=== PATIENT | male | born 1965 | race African-American/Black ===

== ENCOUNTER 2018-12-07 08:03 | Inpatient (IN) | payer MEDICAID ==
[~2018-12-07] VITALS: Ht 170.2 cm; Wt 65.9 kg
[2018-12-07] MEDS ORDERED: RISP1 PO (08:10)
[2018-12-07] MEDS ORDERED: TOPI100T37 PO (08:10)
[2018-12-07 09:26] LABS: BASOPHILS % (AUTO) 0.6 % (0.0-2.0); EOSINOPHILS % (AUTO) 0.5 % (1.0-6.0); HEMATOCRIT 43.2 % (41-53); HEMOGLOBIN 14.6 g/dL (13.5-17.5); LYMPHOCYTES # (AUTO) 1.7 K/uL (1.0-4.8); LYMPHOCYTES % (AUTO) 22.4 % (22.0-44.0); MEAN CORPUSCULAR HEMOGLOBIN 31.3 pg (26.0-34.0); MEAN CORPUSCULAR HGB CONC 33.8 G/dL (31.0-37.0); MEAN CORPUSCULAR VOLUME 93 fL (80-100); MONOCYTES # (AUTO) 0.6 K/uL (0.1-1.0); MONOCYTES % (AUTO) 7.4 % (2.0-9.0); NEUTROPHILS # (AUTO) 5.1 K/uL (1.8-7.7); NEUTROPHILS % (AUTO) 69.1 % (40.0-70.0); PLATELET COUNT (AUTO) 184 K/uL (150-450); RED BLOOD CELL COUNT(AUTO) 4.67 MIL/uL (4.50-5.90); RED CELL DISTRIBUTION WIDTH 13.8 % (11.5-14.5)
[2018-12-07 09:26] LABS: ANION GAP 12 mmol/L (8-16); CALCIUM, TOTAL 9.4 mg/dL (8.8-10.5); CARBON DIOXIDE 24 mmol/L (22-29); CHLORIDE 104 mmol/L (98-107); CREATININE 1.13 mg/dL (0.60-1.30); GLOMERULAR FILTR. RATE CALC > 60 mL/min (>60); GLUCOSE,RANDOM 90 mg/dL (70-110); POTASSIUM 4.1 mmol/L (3.5-5.1); SODIUM SERUM 140 mmol/L (136-145); UREA NITROGEN, BLOOD 26 mg/dL (7-18)
[2018-12-07] MEDS ORDERED: ZOLPIDEM TARTRATE 10 MG TABLET PO PRN (09:30)
[2018-12-07] MEDS ORDERED: LORazepam 2 MG TABLET PO PRN (09:30)
[2018-12-07] MEDS ORDERED: HALOPERIDOL 5 MG TABLET PO PRN (09:30)
[2018-12-07 09:32] LABS: ALANINE AMINOTRANSFERASE 36 U/L (12-78); ALBUMIN 4.3 g/dL (3.4-5.0); ALKALINE PHOSPHATASE 108 U/L (46-116); ASPARTATE AMINOTRANSFERASE 25 U/L (15-37); BILIRUBIN,TOTAL 0.4 mg/dL (0.1-1.0); TOTAL PROTEIN, SERUM 7.7 g/dL (6.4-8.2)
[2018-12-07] MEDS ORDERED: DiphenhydrAMINE HCL 25 MG CAPSULE PO ONE (11:30)
[2018-12-07 11:39] LABS: AMPHET/METH SCREEN,URINE POSITIVE (NEGATIVE); BARBITURATE SCREEN, URINE NEGATIVE (NEGATIVE); BENZODIAZEPINES SCREEN,URINE NEGATIVE (NEGATIVE); CANNABINOID SCREEN,URINE POSITIVE (NEGATIVE); COCAINE SCREEN,URINE NEGATIVE (NEGATIVE); METHADONE SCREEN, URINE NEGATIVE (NEGATIVE); OPIATE SCREEN,URINE NEGATIVE (NEGATIVE)
[2018-12-07 11:40] LABS: PHENCYCLIDINE SCREEN,URINE NEGATIVE (NEGATIVE)
[2018-12-07 12:03] LABS: APPEARANCE,URINE CLEAR (CLEAR); BILIRUBIN,URINE NEGATIVE (NEGATIVE); GLUCOSE, URINE (UA) NEGATIVE (NEGATIVE); KETONES,URINE NEGATIVE (NEGATIVE); LEUKOCYTE ESTERASE ,URINE NEGATIVE (NEGATIVE); NITRATE,URINE NEGATIVE (NEGATIVE); OCCULT BLOOD,URINE NEGATIVE (NEGATIVE); PH,URINE 5.5 (5.0-8.0); PROTEIN,URINE NEGATIVE (NEGATIVE); UROBILINOGEN,URINE 0.2 mg/dL (<=1.0)
[2018-12-07 13:37] VITALS: BP 140/89
[2018-12-07 20:25] VITALS: BP 156/88
[2018-12-08 01:46] VITALS: BP 142/94
[2018-12-08] MEDS ORDERED: PETROLATUM,WHITE 71 GM JELLY TP PRN (07:30)
[2018-12-08] MEDS ORDERED: LOPERAMIDE HCL 2 MG CAPSULE PO PRN (07:30)
[2018-12-08] MEDS ORDERED: MAG HYDROX/AL HYDROX/SIMETH ES 30 ML SUSPENSION UDCUP PO PRN (07:30)
[2018-12-08] MEDS ORDERED: MAGNESIUM HYDROXIDE SUSPENSION 30 ML UDCUP PO PRN (07:30)
[2018-12-08] MEDS ORDERED: ALBUTEROL SULFATE HFA 90 MCG/PUFF 8 GM INHALER IH PRN (07:30)
[2018-12-08] MEDS ORDERED: ONDANSETRON HCL 4 MG TABLET PO PRN (07:30)
[2018-12-08] MEDS ORDERED: GuaiFENesin/D-METHORPHAN [SUGAR-FREE] 200-20MG/10 ML SYRUP UDCUP PO PRN (07:30)
[2018-12-08] MEDS ORDERED: CloNIDine HCL 0.1 MG TABLET PO PRN (07:30)
[2018-12-08] MEDS ORDERED: DOCUSATE SODIUM 100 MG CAPSULE PO PRN (07:30)
[2018-12-08] MEDS ORDERED: IBUPROFEN 400 MG TABLET PO PRN (07:30)
[2018-12-08] MEDS ORDERED: NICOTINE 14 MG/24 HOUR PATCH TD PRN (07:30)
[2018-12-08] MEDS ORDERED: ACETAMINOPHEN 325 MG TABLET PO PRN (07:30)
[2018-12-08 08:00] VITALS: BP 149/92
[2018-12-08 08:37] LABS: CHOL/HDL RATIO 2.9 (4.2-7.3); FREE T4 (FREE THYROXINE) 0.88 ng/dL (0.76-1.46); THYROID STIMULATING HORMONE 1.22 uIU/mL (0.36-3.74)
[2018-12-08] MEDS ORDERED: RisperiDONE 1 MG TABLET PO SCH (17:00)
[2018-12-08 22:03] VITALS: BP 142/87
[2018-12-09 08:05] VITALS: BP 129/88
[2018-12-09] MEDS: FLUoxetine HCL 20 MG CAPSULE PO SCH (09:02)
[2018-12-09] MEDS: RisperiDONE 2 MG TABLET PO SCH ×2 (09:02→16:54)
[2018-12-09 16:45] VITALS: BP 123/78
[2018-12-10 08:00] VITALS: BP 143/84
[2018-12-10] MEDS: FLUoxetine HCL 20 MG CAPSULE PO SCH (09:02)
[2018-12-10] MEDS: RisperiDONE 2 MG TABLET PO SCH ×2 (09:02→16:51)
[2018-12-10 16:00] VITALS: BP 149/89
[2018-12-10] MEDS ORDERED: DENTURE ADHESIVE 68 GM CREAM DT PRN (17:00)
[2018-12-11 08:05] VITALS: BP 135/84
[2018-12-11] MEDS: RisperiDONE 2 MG TABLET PO SCH (10:13)
[2018-12-11] MEDS: FLUoxetine HCL 20 MG CAPSULE PO SCH (10:13)
[2018-12-11] MEDS ORDERED: FLUO-191 PO (14:50)
== END 2018-12-11 16:00 | disposition home or self-care (01) | DRG 750 ==
LOC: EDUNIT# 08:03 → EMS 08:04 → AHU 12:21 → 3EI 12-08 00:19
PROVIDERS: ADMIT Psychiatry & Neurology Psychiatry; ATTEND Psychiatry & Neurology Psychiatry
DX: F25.0 Schizoaffective disorder, bipolar type (principal); Z59.0 Homelessness; F15.10 Other stimulant abuse, uncomplicated; F17.200 Nicotine dependence, unspecified, uncomplicated; F41.9 Anxiety disorder, unspecified; F32.9 Major depressive disorder, single episode, unspecified; I10 Essential (primary) hypertension; Z91.19 Patient's noncompliance with other medical treatment and regimen; Z91.5 Personal history of self-harm; Z28.21 Immunization not carried out because of patient refusal; Z71.6 Tobacco abuse counseling; Z71.51 Drug abuse counseling and surveillance of drug abuser
CPT/HCPCS: 84439; 84443; G0480

== ENCOUNTER 2019-01-23 17:15 | Emergency (ER) | payer MEDICAID ==
[~2019-01-23] VITALS: Ht 170.2 cm; Wt 61.4 kg
[~2019-01-23 17:15] MED LIST: FLUO-191 PO; RISP1 PO
[2019-01-23] MEDS ORDERED: TRAZ-219 PO (17:44)
[2019-01-23] MEDS ORDERED: TOPI25 PO (17:44)
[2019-01-23] MEDS ORDERED: OLAN10TA3 PO (17:44)
[2019-01-23] MEDS ORDERED: AZIT250T9 PO (17:44)
[2019-01-23 18:56] LABS: BASOPHILS % (AUTO) 0.9 % (0.0-2.0); EOSINOPHILS % (AUTO) 1.8 % (1.0-6.0); HEMATOCRIT 38.6 % (41-53); LYMPHOCYTES # (AUTO) 1.7 K/uL (1.0-4.8); LYMPHOCYTES % (AUTO) 36.1 % (22.0-44.0); MEAN CORPUSCULAR HEMOGLOBIN 30.7 pg (26.0-34.0); MEAN CORPUSCULAR HGB CONC 33.8 G/dL (31.0-37.0); MEAN CORPUSCULAR VOLUME 91 fL (80-100); MONOCYTES # (AUTO) 0.5 K/uL (0.1-1.0); MONOCYTES % (AUTO) 9.8 % (2.0-9.0); NEUTROPHILS # (AUTO) 2.5 K/uL (1.8-7.7); NEUTROPHILS % (AUTO) 51.4 % (40.0-70.0); PLATELET COUNT (AUTO) 271 K/uL (150-450); RED BLOOD CELL COUNT(AUTO) 4.25 MIL/uL (4.50-5.90); RED CELL DISTRIBUTION WIDTH 13.7 % (11.5-14.5)
[2019-01-23 19:05] LABS: ANION GAP 9 mmol/L (8-16); CALCIUM, TOTAL 9.3 mg/dL (8.8-10.5); CARBON DIOXIDE 24 mmol/L (22-29); CHLORIDE 105 mmol/L (98-107); CREATININE 1.22 mg/dL (0.60-1.30); GLOMERULAR FILTR. RATE CALC > 60 mL/min (>60); GLUCOSE,RANDOM 129 mg/dL (70-110); POTASSIUM 3.6 mmol/L (3.5-5.1); SODIUM SERUM 138 mmol/L (136-145); UREA NITROGEN, BLOOD 22 mg/dL (7-18)
[2019-01-23 19:13] LABS: ALANINE AMINOTRANSFERASE 12 U/L (12-78); ALBUMIN 3.8 g/dL (3.4-5.0); ALKALINE PHOSPHATASE 101 U/L (46-116); ASPARTATE AMINOTRANSFERASE 14 U/L (15-37); BILIRUBIN,TOTAL 0.5 mg/dL (0.1-1.0); TOTAL PROTEIN, SERUM 7.8 g/dL (6.4-8.2)
[2019-01-24 01:45] VITALS: BP 138/79
== END 2019-01-24 02:09 | disposition home or self-care (01) ==
LOC: EMS 17:15
DX: F20.0 Paranoid schizophrenia (principal); F15.10 Other stimulant abuse, uncomplicated; F17.210 Nicotine dependence, cigarettes, uncomplicated; F32.9 Major depressive disorder, single episode, unspecified; Z79.899 Other long term (current) drug therapy
CPT/HCPCS: 36415; 80053; 85025; 99284; G0480

== ENCOUNTER 2019-12-15 10:51 | Inpatient (IN) | payer MEDICAID ==
[~2019-12-15] VITALS: Ht 170.2 cm; Wt 64.6 kg
[~2019-12-15 10:51] MED LIST changes: +AZIT250T9 PO; -FLUO-191 PO; +OLAN10TA3 PO; -RISP1 PO; +TOPI25 PO; +TRAZ-252 PO
[2019-12-15 12:35] LABS: AMPHET/METH SCREEN,URINE POSITIVE (NEGATIVE); BARBITURATE SCREEN, URINE NEGATIVE (NEGATIVE); BENZODIAZEPINES SCREEN,URINE NEGATIVE (NEGATIVE); CANNABINOID SCREEN,URINE POSITIVE (NEGATIVE); COCAINE SCREEN,URINE NEGATIVE (NEGATIVE); METHADONE SCREEN, URINE NEGATIVE (NEGATIVE); OPIATE SCREEN,URINE NEGATIVE (NEGATIVE)
[2019-12-15 12:36] LABS: PHENCYCLIDINE SCREEN,URINE NEGATIVE (NEGATIVE)
[2019-12-15] MEDS ORDERED: OLANZapine 5 MG TABLET PO ONE (13:00)
[2019-12-15] MEDS ORDERED: HALOPERIDOL 5 MG TABLET PO PRN (13:15)
[2019-12-15] MEDS ORDERED: ZOLPIDEM TARTRATE 10 MG TABLET PO PRN (13:15)
[2019-12-15 17:23] VITALS: BP 143/88
[2019-12-15] MEDS ORDERED: INFLUENZA VIRUS VACCINE QVS 2019-20 (3YR+)/PF 60 MCG/0.5 ML SYRINGE IM ONE (18:15)
[2019-12-16 06:09] VITALS: BP 139/83
[2019-12-16] MEDS: NICOTINE 14 MG/24 HOUR PATCH TD SCH (08:28)
[2019-12-16] MEDS ORDERED: DOCUSATE SODIUM 100 MG CAPSULE PO PRN (09:45)
[2019-12-16] MEDS ORDERED: OMEPRAZOLE 20 MG CAPSULE PO PRN (09:45)
[2019-12-16] MEDS ORDERED: IBUPROFEN 600 MG TABLET PO PRN (09:45)
[2019-12-16] MEDS ORDERED: ONDANSETRON HCL 4 MG TABLET PO PRN (09:45)
[2019-12-16] MEDS ORDERED: LOPERAMIDE HCL 2 MG CAPSULE PO PRN (09:45)
[2019-12-16] MEDS ORDERED: CloNIDine HCL 0.1 MG TABLET PO PRN (09:45)
[2019-12-16] MEDS ORDERED: MAGNESIUM HYDROXIDE SUSPENSION 30 ML UDCUP PO PRN (09:45)
[2019-12-16] MEDS ORDERED: MAG HYDROX/AL HYDROX/SIMETH ES 30 ML SUSPENSION UDCUP PO PRN (09:45)
[2019-12-16] MEDS ORDERED: PETROLATUM,WHITE 28 GM JELLY TP PRN (09:45)
[2019-12-16] MEDS ORDERED: BACITRACIN 28.4 GM OINTMENT TP PRN (09:45)
[2019-12-16] MEDS ORDERED: BENZOCAINE/MENTHOL LOZENGE MM PRN (09:45)
[2019-12-16] MEDS ORDERED: ACETAMINOPHEN 325 MG TABLET PO PRN (09:45)
[2019-12-16] MEDS ORDERED: ALBUTEROL SULFATE HFA 90 MCG/PUFF 8 GM INHALER IH PRN (09:45)
[2019-12-16 16:06] VITALS: BP 144/69
[2019-12-16] MEDS: LORazepam 2 MG TABLET PO PRN (16:13)
[2019-12-17 04:52] VITALS: BP 148/80
[2019-12-17] MEDS: GABAPENTIN 400 MG CAPSULE PO SCH ×2 (08:40→16:12)
[2019-12-17] MEDS: DIVALPROEX SODIUM 500 MG DR TABLET PO SCH ×2 (08:41→16:12)
[2019-12-17] MEDS: NICOTINE 14 MG/24 HOUR PATCH TD SCH (08:45)
[2019-12-17 13:59] VITALS: BP 114/63
[2019-12-17] MEDS: LORazepam 2 MG TABLET PO PRN (16:12)
[2019-12-17 18:05] VITALS: BP 129/74
[2019-12-17] MEDS: OLANZapine 10 MG TABLET PO SCH (20:11)
[2019-12-18 05:09] VITALS: BP 124/72
[2019-12-18 08:14] VITALS: BP 128/75
[2019-12-18] MEDS: DIVALPROEX SODIUM 500 MG DR TABLET PO SCH ×2 (08:32→16:55)
[2019-12-18] MEDS: GABAPENTIN 400 MG CAPSULE PO SCH ×2 (08:32→16:55)
[2019-12-18] MEDS: NICOTINE 14 MG/24 HOUR PATCH TD SCH (08:38)
[2019-12-18 16:00] VITALS: BP 125/78
[2019-12-18] MEDS: LORazepam 2 MG TABLET PO PRN (16:55)
[2019-12-18] MEDS: OLANZapine 10 MG TABLET PO SCH (20:30)
[2019-12-19 06:46] VITALS: BP 123/73
[2019-12-19 08:00] VITALS: BP 138/81
[2019-12-19] MEDS: DIVALPROEX SODIUM 500 MG DR TABLET PO SCH ×2 (08:40→17:12)
[2019-12-19] MEDS: NICOTINE 14 MG/24 HOUR PATCH TD SCH (08:40)
[2019-12-19] MEDS: GABAPENTIN 400 MG CAPSULE PO SCH ×2 (08:40→17:12)
[2019-12-19 16:00] VITALS: BP 110/66
[2019-12-19] MEDS: LORazepam 2 MG TABLET PO PRN (17:12)
[2019-12-19] MEDS: OLANZapine 10 MG TABLET PO SCH (20:42)
[2019-12-20 06:42] VITALS: BP 142/66
[2019-12-20 08:01] VITALS: BP 127/63
[2019-12-20] MEDS: DIVALPROEX SODIUM 500 MG DR TABLET PO SCH (08:01)
[2019-12-20] MEDS: GABAPENTIN 400 MG CAPSULE PO SCH (08:01)
[2019-12-20] MEDS: NICOTINE 14 MG/24 HOUR PATCH TD SCH (08:04)
[2019-12-20] MEDS ORDERED: DIVA-78 PO (12:32)
[2019-12-20] MEDS ORDERED: GABA-533 PO ×2 (12:33→16:08)
[2019-12-20 16:12] VITALS: BP 109/83
== END 2019-12-20 16:20 | disposition home or self-care (01) | DRG 750 ==
LOC: EMS 10:51 → B3A 14:21
PROVIDERS: ADMIT Psychiatry & Neurology Psychiatry; ATTEND Psychiatry & Neurology Psychiatry
DX: F25.0 Schizoaffective disorder, bipolar type (principal); R45.851 Suicidal ideations; Z91.14 Patient's other noncompliance with medication regimen; F10.10 Alcohol abuse, uncomplicated; I10 Essential (primary) hypertension; F19.10 Other psychoactive substance abuse, uncomplicated; G47.00 Insomnia, unspecified; K59.00 Constipation, unspecified; F41.9 Anxiety disorder, unspecified; F12.90 Cannabis use, unspecified, uncomplicated; Y90.9 Presence of alcohol in blood, level not specified; Z72.0 Tobacco use; Z87.01 Personal history of pneumonia (recurrent); Z28.21 Immunization not carried out because of patient refusal